=== PATIENT | female | born 2000 | race Caucasian/White ===

== ENCOUNTER 2021-07-15 11:57 | Outpatient (CLI) | payer OTHER, SELFPAY ==
--- NOTE | 2021-07-15 12:17 | XR_ITS ---
WS: [id number] Exam: XR wrist RT min 3V* [id number] Date/Time of Exam: 07/15/2021 12:32 PM Reason For Exam: TENDONITIS/R THUMB PAIN/P IN R WRIST There are no fractures, soft tissue swelling, or unusual calcifications. The wrist shows normal bony alignment. There is no irregularity of the bony architecture. XR/XR wrist RT min 3V* [id number] IMPRESSION: Negative right wrist.
== END 2021-07-15 11:58 | disposition home or self-care (01) ==
LOC: RAD 12:03
PROVIDERS: PCP Pediatrics Adolescent Medicine; Visit Provider Electrodiagnostic Medicine
DX: M77.8 Other enthesopathies, not elsewhere classified (principal); M79.644 Pain in right finger(s); M25.531 Pain in right wrist
CPT/HCPCS: 73110

== ENCOUNTER 2021-08-04 12:27 | Outpatient (CLI) | payer OTHER, SELFPAY ==
[2021-08-04 12:41] VITALS: BP 132/84; PULSE 103; RESP 18; TEMP 36.1; O2SAT 98; BMI 19.8
[2021-08-04 13:37] VITALS: BP 128/87; PULSE 104; RESP 17; TEMP 36.1; O2SAT 99
[2021-08-04 14:29] VITALS: BP 129/86; PULSE 102; RESP 18; TEMP 36.4; O2SAT 99
[2021-08-04 14:43] VITALS: BP 129/86; PULSE 102; RESP 18; TEMP 36.3; O2SAT 99
== END 2021-08-04 12:28 | disposition home or self-care (01) ==
PROVIDERS: PCP Electrodiagnostic Medicine; Visit Provider Nurse Practitioner Family
DX: U07.1 COVID-19 (principal)
CPT/HCPCS: 96365